=== PATIENT | male | born 1985 | race African-American/Black ===

== ENCOUNTER 2016-06-13 02:53 | Emergency (ER) | payer OTHER ==
[~2016-06-13] VITALS: Ht 200.7 cm; Wt 113.4 kg
[~2016-06-13 02:53] MED LIST: BACTRIM DS TAB1 EAC1 ORAL; DETROL LA4 MG ORAL; HYDROCODON-ACE1 EA16 ORAL; MACROBID100 MG ORAL; WARFARIN SODIU7.5 MG ORAL
[2016-06-13 03:35] VITALS: BP 120/76
[2016-06-13 04:40] VITALS: BP 118/74
--- NOTE | 2016-06-13 05:44 | Emergency Room Report ---
History of Present Illness General Chief Complaint: Lower Extremity Injury Source: Patient Present Illness HPI Patient reports that he is a paraplegic Yesterday what he was doing exercises and trying to lift up Workup his lower extremity he twisted his left ankle Presents with pain to the ankle and also the lower leg itself Denies any other fall denies any pelvic pain Denies any lacerations or cuts Patient has peripheral neuropathy Allergies: Coded Allergies: No Known Allergies (Unverified , 03/21/15) Patient History Past Medical History: see triage record Pertinent Family History: none Reviewed Nursing Documentation: PMH: Agreed, PSxH: Agreed Nursing Documentation-PMH Past Medical History: No History, Except For Hx Hypertension: No - DVT Review of Systems All Other Systems: negative except mentioned in HPI Physical Exam Vital Signs Date Time Temp Pulse Resp B/P Pulse Ox O2 Delivery O2 Flow Rate FiO2 06/13/16 03:26 98.2 81 16 123/79 100 Room Air Sp02 EP Interpretation: reviewed, normal General Appearance: well appearing, no apparent distress Head: normocephalic, atraumatic Eyes: bilateral eye EOMI, bilateral eye PERRL ENT: normal pharynx, no angioedema Neck: full range of motion, supple Respiratory: lungs clear Cardiovascular #1: regular rate, rhythm Gastrointestinal: non tender, soft Musculoskeletal: other - Mild swelling to the left ankle Neurologic: alert, oriented x3, other - Paraplegic from the waist below, however patient does have some movement in the lower extremity Skin: normal color, no rash Medical Decision Making Diagnostic Impression: Primary Impression: ankle sprain ER Course Examination of the tibia and also the ankle area does not show any acute disease on the one view of the distal tibia there was a questionable disruption of the cortex however I do not suspect that this is acute patient is essentially nonweightbearing as well And otherwise stable for close outpatient followup Other X-Ray Diagnostic Results Other X-Ray Diagnostic Results #1: EP Interpretation: Yes Findings: no fractures, no dislocation, no soft tissue swelling Number of Views: 2 - left tib-fib Other X-Ray Diagnostic Results #2: EP Interpretation: Yes Findings: no fractures, no dislocation, no soft tissue swelling, other - Questionable mild discrepancy/disruption of the distal tibia, do not suspect any obvious acute pathology Number of Views: 3 - left ankle Last Vital Signs Date Time Temp Pulse Resp B/P Pulse Ox O2 Delivery O2 Flow Rate FiO2 06/13/16 04:40 98.1 72 16 118/74 100 Room Air Status: improved Disposition: HOME, SELF-CARE Condition: Stable Referrals: NOT CHOSEN [facility]/MD,REFERRING (PCP) Patient Instructions: Ankle Sprain Additional Instructions: Patient is provided with the discharge instructions notified to follow up with primary doctor in the next 2-3 days otherwise return to the er with any worsening symptoms. Please note that this report is being documented using [employer] technology. This can lead to erroneous entry secondary to incorrect interpretation by the dictating instrument. GUSTAVO JOYNER D.O. Jun 13, 2016 05:44
--- NOTE | 2016-06-13 10:17 | Diagnostic Imaging Report ---
Indication: Left ankle pain Technique: 3 views of the left ankle Comparison: none Findings: There is disruption of the cortex of the medial tibia. Discrete fracture line is not demonstrated, however. The fibula is intact. The joint spaces are preserved. Bones are osteoporotic Impression: Findings consistent with age-indeterminate nondisplaced distal tibial fracture. Consider cross-sectional imaging for better characterization if clinically indicated Osteoporosis This agrees with the preliminary interpretation provided by the emergency room physician
--- NOTE | 2016-06-13 10:19 | Diagnostic Imaging Report ---
Indication: PAIN Technique: 2 views of the left proximal tibia and fibula Comparison: none Findings: Note that the distal tibia and fibula are demonstrated on ankle radiograph performed at the same time. No proximal fracture demonstrated. Bones are osteoporotic Impression: No acute bony trauma possibly. Please see ankle radiographic report regarding possible distal tibial fracture
== END 2016-06-13 04:40 | disposition home or self-care (01) ==
LOC: EMR 03:32
DX: S93.402A Sprain of unspecified ligament of left ankle, initial encounter (principal); X50.1XXA Overexertion from prolonged static or awkward postures, initial encounter; Y93.B9 Activity, other involving muscle strengthening exercises; Y92.89 Other specified places as the place of occurrence of the external cause; M81.0 Age-related osteoporosis without current pathological fracture; G62.9 Polyneuropathy, unspecified
CPT/HCPCS: 99284

== ENCOUNTER 2016-11-10 18:28 | Emergency (ER) | payer OTHER ==
[~2016-11-10] VITALS: Ht 193 cm; Wt 111.1 kg
[2016-11-10 19:13] VITALS: BP_SYST 130; BP_SYST 30; BP_DIAS 94
[2016-11-10 19:32] LABS: APPEARANCE,URINE CLOUDY; KETONES,URINE NEGATIVE (NEGATIVE); LEUKOCYTE ESTERASE ,URINE 3+ (NEGATIVE); NITRITE,URINE NEGATIVE (NEGATIVE); PH,URINE 6 (4.5-8.0); PROTEIN,URINE 2+ (NEGATIVE); UROBILINOGEN,URINE 1 MG/DL (0.0-1.0)
[2016-11-10 19:39] LABS: BACTERIA,URINE MODERATE /HPF; SQUAMOUS EPITHELIAL CELL,UR FEW /LPF (NONE/OCC); WBC,URINE TNTC /HPF (0 - 0)
[2016-11-10] MEDS ORDERED: NITROFURANTOIN100 M2 ORAL (19:41)
[2016-11-10] MEDS ORDERED: NORCO 5-325 TA1 EAC1 ORAL (19:41)
[2016-11-10 19:53] VITALS: BP 130/94
--- NOTE | 2016-11-10 22:23 | Emergency Room Report ---
History of Present Illness General Chief Complaint: Male Urogenital Problems Source: Patient Present Illness HPI The patient is a 31-year-old male with paraplegia presenting for possible UTI. He states that he obtains frequent UTIs and this feels the same for him. He admits to mid lower abdominal pain described as 5/10 dull ache and also has pain with catheterization since yesterday. He denies any fever or chills. He denies any back pain. He denies any other symptoms including penile DC, dysuria , hematuria Allergies: Coded Allergies: No Known Allergies (Unverified , 03/21/15) Patient History Past Medical History: see triage record Pertinent Family History: none Reviewed Nursing Documentation: PMH: Agreed, PSxH: Agreed Nursing Documentation-PMH Hx Hypertension: No - DVT Review of Systems All Other Systems: negative except mentioned in HPI Physical Exam Vital Signs Date Time Temp Pulse Resp B/P (MAP) Pulse Ox O2 Delivery O2 Flow Rate FiO2 11/10/16 18:37 98.8 73 20 30/94 99 Room Air Sp02 EP Interpretation: reviewed, normal General Appearance: no apparent distress, alert, GCS 15, non-toxic Head: normocephalic, atraumatic Eyes: bilateral eye normal inspection, bilateral eye PERRL ENT: hearing grossly normal, normal pharynx, no angioedema, normal voice Respiratory: chest non-tender, lungs clear, normal breath sounds, speaking full sentences Cardiovascular #1: regular rate, rhythm, no edema Gastrointestinal: normal bowel sounds, non tender, soft, non-distended, no guarding, no rebound Genitourinary: normal inspection, no CVA tenderness Musculoskeletal: other - in wheelchair Neurologic: alert, oriented x3, responsive, motor strength/tone normal, sensory intact, speech normal Psychiatric: judgement/insight normal, memory normal, mood/affect normal, no suicidal/homicidal ideation Skin: normal color, no rash, warm/dry, well hydrated Medical Decision Making PA Attestation Dr. Saenz is my supervising physician. Patient management was discussed with my supervising physician Diagnostic Impression: Primary Impression: UTI (urinary tract infection) Qualified Codes: N39.0 - Urinary tract infection, site not specified; R31.9 - Hematuria, unspecified ER Course The patient is a 31-year-old male with paraplegia presenting for possible UTI. Differential diagnosis considered but not limited to: UTI, STD, pyelonephritis, among others PE: NAD Abd is soft and non tender. No CVA tenderness UA shows obvious infection He will be treated with macrobid as this has worked for him in the past. ER precautions given EDIT: 11/13 Micro shows resistance to prescribed abx. [facility] called and ciprofloxacin prescribed Laboratory Tests Test 11/10/16 19:17 Urine Color Yellow Urine Appearance Cloudy Urine pH 6 (4.5-8.0) Urine Specific [place] 1.015 (1.005-1.035) Urine Protein 2+ (NEGATIVE) H Urine Glucose (UA) Negative (NEGATIVE) Urine Ketones Negative (NEGATIVE) Urine Occult Blood 5+ (NEGATIVE) H Urine Nitrite Negative (NEGATIVE) Urine Bilirubin Negative (NEGATIVE) Urine Urobilinogen 1 MG/DL (0.0-1.0) H Urine Leukocyte Esterase 3+ (NEGATIVE) H Urine RBC 2-4 /HPF (0 - 0) H Urine WBC Tntc /HPF (0 - 0) H Urine Squamous Epithelial Cells Few /LPF (NONE/OCC) Urine Bacteria Moderate /HPF (NONE) H Lab Results Impression TNTC WBCs and bacteria Last Vital Signs Date Time Temp Pulse Resp B/P (MAP) Pulse Ox O2 Delivery O2 Flow Rate FiO2 11/10/16 19:13 98.8 73 20 30/94 99 Room Air Status: improved Disposition: HOME, SELF-CARE Condition: Improved Scripts Cephalexin* (KEFLEX*) 500 Mg Capsule 500 MG ORAL BID for 7 Days, #14 CAP 0 Refills Prov: GRANT ANDREWS M.D. 11/13/16 Nitrofurantoin Monohyd/M-Cryst* (MACROBID 100 MG*) 100 Mg Capsule 100 MG ORAL EVERY 12 HOURS, #14 CAP Prov: TERZIAN,RICARDO P.A. 11/10/16 Hydrocodone Bit/Acetaminophen 5-325* (NORCO 5-325 TABLET*) 1 Each Tablet 1 TAB ORAL Q6HR Y for For Pain, #10 TAB Prov: TERZIAN,RICARDO P.A. 11/10/16 Referrals: NON PHYSICIAN (PCP) Patient Instructions: Urinary Tract Infection Additional Instructions: I discussed my findings with the patient. All questions and concerns have been answered. Treatment and medication compliance have been addressed. I advised the patient that they need to follow up with PMD in 3-5 days. Return to ED if symptoms worsen, new symptoms arise, or if needed for any reason. Patient verbalized understanding of discharge instructions. RICARDO CHAVES. Nov 10, 2016 22:23
[2016-11-13] MEDS ORDERED: KEFLEX500 MG ORAL (07:05)
== END 2016-11-10 19:57 | disposition home or self-care (01) ==
LOC: EMR 19:56
DX: N39.0 Urinary tract infection, site not specified (principal); G82.20 Paraplegia, unspecified
CPT/HCPCS: 81003; 87086; 87181; 99284

== ENCOUNTER 2018-07-22 22:01 | Emergency (ER) | payer OTHER ==
[~2018-07-22] VITALS: Ht 200.7 cm; Wt 122.5 kg
[~2018-07-22 22:01] MED LIST changes: +KEFLEX500 MG ORAL; +NITROFURANTOIN100 M2 ORAL; +NORCO 5-325 TA1 EAC1 ORAL
[2018-07-22] MEDS ORDERED: Cephalexin 500mg cap ORAL ONE (23:00)
[2018-07-22] MEDS ORDERED: Bactrim-DS 1 tab ORAL ONE (23:00)
[2018-07-22] MEDS ORDERED: BACTRIM DS TAB1 EAC1 ORAL (23:01)
[2018-07-22] MEDS ORDERED: CEPHALEXIN500 MG ORAL (23:01)
[2018-07-22 23:20] VITALS: BP 122/58
--- NOTE | 2018-07-23 06:04 | Emergency Room Report ---
History of Present Illness General Chief Complaint: Skin Rash/Abscess Source: Patient Present Illness HPI 32-year-old male presents to ED for evaluation. Complaining of pain and swelling to the right side of abdomen. Started a few days ago. Pain is dull, 8 out of 10, nonradiating. Denies fevers or chills. Denies any discharge. No other aggravating relieving factors. Denies any other associated symptoms Allergies: Coded Allergies: No Known Allergies (Unverified , 03/21/15) Patient History Past Medical History: none Past Surgical History: none Pertinent Family History: none Social History: Denies: smoking, alcohol use, drug use Immunizations: UTD Reviewed Nursing Documentation: PMH: Agreed; PSxH: Agreed Nursing Documentation-PMH Hx Hypertension: No - DVT Review of Systems All Other Systems: negative except mentioned in HPI Physical Exam Vital Signs Date Time Temp Pulse Resp B/P (MAP) Pulse Ox O2 Delivery O2 Flow Rate FiO2 07/22/18 22:25 98.8 110 20 122/58 (79) 98 Room Air Sp02 EP Interpretation: reviewed, normal General Appearance: no apparent distress, alert, GCS 15, non-toxic Head: normocephalic Eyes: bilateral eye normal inspection, bilateral eye PERRL ENT: normal ENT inspection Neck: normal inspection Respiratory: normal inspection Cardiovascular #1: regular rate, rhythm, no edema Gastrointestinal: normal bowel sounds, non-distended, no guarding, no rebound Rectal: deferred Genitourinary: no CVA tenderness Musculoskeletal: other - paraplegic Psychiatric: normal inspection Skin: other - induration/erythema R side of abdomen. no fluctuance or discharge. Lymphatic: normal inspection Medical Decision Making Diagnostic Impression: Primary Impression: Cellulitis, abdominal wall ER Course Hospital Course 32-year-old male presents to ED with redness, pain to right side of abdomen Differential diagnoses include: Cellulitis, dermatitis, insect bite, abscess Clinical course Patient placed on stretcher. After initial history, physical exam reveals a male in no acute distress. On exam there is erythema and induration to the right side of abdomen. There is no fluctuance. There is no discharge. Patient does not inject any medications. Discussed findings with patient. Likely cellulitis. No signs of abscess. Patient afebrile, nontoxic-appearing. Will discharge with antibiotics. Given Keflex and Bactrim here. Safe for discharge for close outpatient follow-up. States he has a PMD Diagnosis - abdominal wall cellultiis stable and discharged to home with prescription for bactrim, Keflex. warm compresses. Instructed to followup with PMD. Instructed return to ED if symptoms recur or worsen Last Vital Signs Date Time Temp Pulse Resp B/P (MAP) Pulse Ox O2 Delivery O2 Flow Rate FiO2 07/22/18 23:20 98.8 78 20 122/58 98 Room Air Status: improved Disposition: HOME, SELF-CARE Condition: Stable Scripts Trimethoprim/Sulfamethoxazole 160/800* (BACTRIM DS TABLET*) 1 Each Tablet 1 TAB ORAL Q12H, #14 TAB 0 Refills Prov: Hussein Jessica MD 07/22/18 Cephalexin* (KEFLEX*) 500 Mg Capsule 500 MG ORAL EVERY 6 HOURS for 7 Days, CAP Prov: Hussein Jessica MD 07/22/18 Referrals: NOT CHOSEN [facility]/,REFERRING (PCP) Ilsa Hdez [facility] Patient Instructions: Cellulitis, [id number] Additional Instructions: warm compresses. take antibiotics as prescribed. keep progress of the size of the cellulitis. followup with your PMD. if it gets better despite taking antibiotics, return to ED Hussein Jessica MD Jul 23, 2018 06:04
== END 2018-07-22 23:20 | disposition home or self-care (01) ==
LOC: EMR 23:00
DX: L03.311 Cellulitis of abdominal wall (principal); Z86.718 Personal history of other venous thrombosis and embolism
CPT/HCPCS: 99282